=== PATIENT | male | born 1975 | race Caucasian/White ===

== ENCOUNTER → 2016-07-24 | Outpatient (CLI) | payer BC, OTHER ==
[~2016-07-24] VITALS: Ht 177.8 cm; Wt 85.9 kg
[~2016-07-24] MED LIST: ALEVE220 MG PO; BACLOFEN20 MG PO; MOBIC7.5 MG PO; NABUMETONE 500500 M1 PO
--- NOTE | ~2016-07-24 | HPC ---
[facility] [address] [place] [address] PAIN MANAGEMENT CONSULTATION Name: CLARISSE KURTZ Room #: REG BERNADETTE [place]#: [id number] Admission: 07/24/16 Attend Phys: Clarisse Irvin DO Discharge: Date of : 73 Report #: [id number] THIS REPORT FOR: //name// CC: Clarisse Curiel DATE OF SERVICE: 07/24/2016 DATE OF SERVICE: 07/24/2016 CHIEF COMPLAINT: Low back pain. HISTORY OF PRESENT ILLNESS: As you know, patient is a 41-year-old male, who is reporting pain score 4/10. States the pain is aching and sharp in sensation, exacerbated with standing, bending, improves with medications and sitting. The patient was initially seen in our clinic per request of Dr. Kenyon Curiel diagnosed with mild lumbosacral spondylosis without radiculopathy and myofascial pain. We chose to utilize conservative medical therapy, as the patient was showing no pathology specific enough to trial injection therapies. He has been doing very well, has had some increasing back pain of late that he is concerned with. He has been referred back to our clinic by his primary care physician for discussions of treatment. The patient denies new injury or trauma. MRI of August 2015 shows mild arthritic changes at L5-S1 and moderate changes at L4-L5. There is no lateralizing disk features. The patient is experiencing no radicular symptoms. ALLERGIES: No known drug allergies. CURRENT MEDICATIONS: Naproxen 220 mg twice a day. SOCIAL HISTORY: The patient denies tobacco, IV or illicit drug use. Admits to approximately 3 alcoholic beverages per week. 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 IMAGING: No new imaging available. PHYSICAL EXAMINATION: VITAL SIGNS: Blood pressure 124/78, pulse 80, respiratory rate 14, unlabored. The patient is 100% on room air. Height 5 feet 10 inches tall, weight 189.4 pounds, BMI calculated 27.2. GENERAL: Well-developed, well-nourished, well-hydrated 41-year-old male appearing stated age, no acute distress, awake, alert and oriented x 3. Current pain score rated at 4/10. HEENT: Normocephalic, atraumatic. Pupils equal, round, reactive to light. Extraocular muscles are intact. [address] [address] PAIN MANAGEMENT CONSULTATION Name: CLARISSE KURTZ [id number] Admission: 07/24/16 Attend Phys: Clarisse Irvin DO Discharge: Date of : 73 Report #: [id number] EXTREMITIES: Show no clubbing, no cyanosis, no edema. MUSCULOSKELETAL: Upper extremity strength, lower extremity strength equal and symmetrical 5/5, intact to light touch from C5-T1 dermatomes, again from L1 through S2 dermatomes. Seated straight leg raising negative. Supine straight leg raising negative. Fabere's test is negative. Modified Gaenslen's is positive only for some axial back pain, no radiation of symptoms. Ankle clonus negative. Babinski is negative. Lumbar provocation testing including extension, rotation, lateral flexion only mildly intensify back pain. ASSESSMENT: 1. Chronic lumbar back pain. 2. Mild to moderate facet arthropathy at L4-L5 and L5-S1. 3. Chronic intractable pain. PLAN: 1. The patient has returned today in followup visit where we have discussed at length the findings of his physical exam and the findings in his MRI. The patient does appear to be suffering from mild facet arthropathy changes leading to some axial back pain issues. There are no radicular symptoms, no need for aggressive treatment in this patient's case. We would recommend a more conservative treatment options, as the findings in his MRI are mild at its worse. I would recommend the patient utilize conservative treatment continuing his exercise and stretching program. He can get more aggressive if he wishes with this program, as his findings in the lumbar region are nonsevere. There is no lateralizing features. No disk protrusions. No signs of radicular symptoms to date. Would recommend very conservative treatment options including increasing the exercise. 2. The patient would discontinue his naproxen in place. We will be using nabumetone. Will be providing 500 mg 1 tab p.o. t.i.d. This has provided specifically for pain control. He was given this prescription with 2 refills, 3 months worth of medication. 3. We will be starting the patient on baclofen 10 mg dose initially and escalating to 20 mg if necessary. Has given baclofen 20 mg tablets to use half a tab to 1 tab 3 times a day, given #90 tablets, no refills. The patient was advised this medication could cause somnolence, decrease in mental acuity, disorientation and confusion. He is to utilize medication only as necessary. 4. We will see the patient back in followup visit on an as needed basis. I believe that the remaining conservative in this patient's case is appropriate. <ELECTRONICALLY SIGNED> By: Clarisse Irvin DO 08/06/16 [id number] Clarisse Irvin DO /nt
[2016-07-24 12:55] VITALS: BP 124/78
== END | disposition home or self-care (01) ==
LOC: PAIN 07:15
DX: M46.96 Unspecified inflammatory spondylopathy, lumbar region (principal); G89.29 Other chronic pain

== ENCOUNTER → 2019-01-07 | Outpatient (CLI) | payer OTHER | LOC: CAT 08:25 | DX: Z13.6 Encounter for screening for cardiovascular disorders (principal); E78.00 Pure hypercholesterolemia, unspecified; I25.10 Atherosclerotic heart disease of native coronary artery without angina pectoris ==

== ENCOUNTER → 2020-04-05 | Outpatient (CLI) | payer BC, OTHER | LOC: LAB 07:25 | PROVIDERS: ATTEND Anesthesiology | DX: Z01.82 Encounter for allergy testing (principal); Z20.828 Contact with and (suspected) exposure to other viral communicable diseases ==